=== PATIENT | female | born 1970 | race Two or more races ===

== ENCOUNTER 2022-01-28 07:53 | Outpatient (CLI) | payer OTHER | END 2022-01-28 08:06 | disposition home or self-care (01) | LOC: RX STUDY 07:53 | PROVIDERS: ATTEND Colon & Rectal Surgery | DX: K57.20 Diverticulitis of large intestine with perforation and abscess without bleeding (principal) ==

== ENCOUNTER → 2022-07-07 09:34 | Outpatient (CLI) | payer OTHER | END | disposition home or self-care (01) | LOC: LAB 09:34 | PROVIDERS: ATTEND Colon & Rectal Surgery | DX: K57.20 Diverticulitis of large intestine with perforation and abscess without bleeding (principal); Z93.3 Colostomy status ==

== ENCOUNTER 2022-07-08 12:31 | Inpatient (IN) | payer OTHER ==
[~2022-07-08] VITALS: Ht 167.6 cm; Wt 69.9 kg
[~2022-07-08 12:31] MED LIST: AZELASTINE137 MCG/0. NASAL; PEPCID AC20 MG PO; SINGULAIR 10MG10 MG PO; SYMBICORT 16010.2 GM IH; ZYRTEC10 M3 PO
[2022-07-13] MEDS ORDERED: AZELASTIN-FLUTI23 GM (08:08)
[2022-07-13] MEDS ORDERED: LEVALBUTEROL TA15 GM (08:08)
== END 2022-07-16 10:42 | disposition home or self-care (01) | DRG 327 ==
LOC: O/R 07-13 05:30 → CIR.AMB 07-13 10:32 → EDSTATUS 07-13 10:36 → SURH 07-13 10:37 → SURG 07-13 11:54 → SURH 07-13 15:45 → SURG 07-16 10:42
PROVIDERS: ADMIT Colon & Rectal Surgery; ATTEND Colon & Rectal Surgery
PROC: 0DTP4ZZ Resection of Rectum, Percutaneous Endoscopic Approach (ICD-10-PCS; 2022-07-13)
PROC: 0DQ94ZZ Repair Duodenum, Percutaneous Endoscopic Approach (ICD-10-PCS; principal; 2022-07-13 15:45)
DX: K91.858 Other complications of intestinal pouch (principal); K91.71 Accidental puncture and laceration of a digestive system organ or structure during a digestive system procedure; K62.4 Stenosis of anus and rectum

== ENCOUNTER 2022-12-20 07:20 | Outpatient (CLI) | payer OTHER ==
[~2022-12-20 07:20] MED LIST changes: +AZELASTIN-FLUTI23 GM; +LEVALBUTEROL TA15 GM
== END 2022-12-20 07:30 | disposition home or self-care (01) ==
LOC: RX STUDY 07:20
PROVIDERS: ATTEND Colon & Rectal Surgery
DX: K62.4 Stenosis of anus and rectum (principal)